=== PATIENT | male | born 1970 | race Hispanic/Latino ===

== ENCOUNTER 2025-01-09 10:23 | Emergency (ER) | payer OTHER ==
[~2025-01-09] VITALS: Ht 167.6 cm; Wt 102.1 kg
[2025-01-09 10:46] LABS: APPEARANCE,URINE CLEAR (CLEAR); BILIRUBIN,URINE NEGATIVE (NEGATIVE); COLOR,URINE STRAW (YELLOW); GLUCOSE, URINE (UA) NEGATIVE (NEGATIVE); KETONES,URINE NEGATIVE (NEGATIVE); LEUKOCYTE ESTERASE ,URINE NEGATIVE Leu/uL (NEGATIVE); NITRATE,URINE NEGATIVE (NEGATIVE); OCCULT BLOOD,URINE NEGATIVE (NEGATIVE); PROTEIN,URINE NEGATIVE (NEGATIVE); UROBILINOGEN,URINE 0.2 mg/dL (0.2-1.0)
[2025-01-09 10:47] LABS: ADD UA MICROSCOPIC NO
[2025-01-09 10:57] VITALS: TEMP 98.7
[2025-01-09 10:59] LABS: BASOPHILS # (AUTO) 0.03 K/uL (0.00-0.20); BASOPHILS % (AUTO) 0.4 % (0.0-5.0); EOSINOPHILS # (AUTO) 0.21 K/uL (0.00-0.70); EOSINOPHILS % (AUTO) 2.8 % (0.0-8.0); HEMATOCRIT 45.6 % (42-54); IMMATURE GRANULOCYTE ABSOLUTE 0.01 K/uL (0-1); LYMPHOCYTES # (AUTO) 2.7 K/uL (1.0-4.8); LYMPHOCYTES % (AUTO) 36.1 % (21.0-51.0); MEAN CORPUSCULAR HEMOGLOBIN 30.4 pg (27.0-33.0); MEAN CORPUSCULAR VOLUME 89.4 fL (79-99); MONOCYTES # (AUTO) 0.6 K/uL (0.1-1.0); MONOCYTES % (AUTO) 7.7 % (3.0-13.0); NEUTROPHILS # (AUTO) 3.9 K/uL (1.8-7.7); NEUTROPHILS % (AUTO) 52.9 % (40.0-77.0); PLATELET COUNT (AUTO) 211 K/uL (130-400); RED CELL DISTRIBUTION WIDTH 12.2 % (11.0-15.5); WHITE BLOOD COUNT (AUTO) 7.4 K/uL (4.8-10.8)
[2025-01-09] MEDS: ASPIRIN 325MG EC TAB PO ONE (10:59)
[2025-01-09] MEDS: NITROGLYCERIN 1GM OINT 1 INCH/1GM TD ONE (11:00)
[2025-01-09 11:10] LABS: CREATININE 1.1 mg/dL (0.5-1.3); POTASSIUM 4.2 mmol/L (3.5-5.1)
[2025-01-09 11:27] LABS: B-TYPE NATRIURETIC PEPTIDE 16 pg/mL (0-100)
--- NOTE | 2025-01-09 11:36 | HMCIMG ---
Exam Type: CHEST 1VW Clinical Information: CHEST PAIN Comparison: None Findings: The lungs are clear of infiltrates. The heart is normal in size. The bony and soft tissue structures of the chest are unremarkable. Impression: Clear lungs.
--- NOTE | 2025-01-09 12:10 | ERN ---
ED Note History of Present Illness Stated Complaint: CHEST PAIN AND NUMBNESS TO LEFT CHEST Chief Complaint: Chest Pain Time Seen by MD: 10:25 Dictation: 54-year-old male with a history of HTN presents to the ED for evaluation of intermittent chest pain onset two days ago. Patient is also complaining of left chest numbness sensation and chronic numbness to right thigh, but denies any shortness a breath or any other associated symptoms at this time. Patient has not been seen by access service representative. Allergies: Coded Allergies: No Known Drug Allergies (Unverified Allergy, Unknown, 01/09/25) Past Medical History Past Medical History: Anxiety, Hypertension Additional Past Medical Hx: ANXIETY ATTACKS Surgical History: Other Review of System Dictation Constitutional: Negative for fever,chills, and weight loss Eyes: Negative for injury, pain,redness, and discharge ENT: Negative for injury,pain or swelling Cardiovascular: Positive for chest pain, numbness sensation to chest Respiratory: Negative for shortness of breath, cough, and wheezing, Abdomen/GI: Negative for abdominal pain, nausea, vomiting, diarrhea, and constipation Back: Negative for injury and pain : Negative for injury, bleeding and discharge MS/Extremity: Negative for injury and deformity Skin: Negative for rash, and discoloration Neuro: Negative for headache, weakness, numbness, tingling, and seizure Psych: Negative for suicide ideation, homicidal ideation, and hallucinations Initial Vital Sign VS Vital Signs Date Time Temp Pulse Resp B/P (MAP) Pulse Ox O2 Delivery O2 Flow Rate FiO2 01/09/25 10:25 97.3 68 14 182/102 99 Room Air 0 01/09/25 10:57 21 Physical Exam Dictation General: awake, alert, NAD Head/Face: Normocephalic, atraumatic Eyes: PERRL, EOMI, vision at baseline ENT: oral cavity clear, TMs clear, no signs of infection Neck: Trachea midline, supple, no nuchal rigidity Cardiovascular: RRR, normal S1/S2, No MRGs, no JVD Respiratory: CTAB, no respiratory distress, No rales or wheezes Abdomen: Soft, non-tender, non-distended, normal bowel sounds, no guarding or rebound. Skin: Warm, dry, normal turgor, no rash MS/Extremity: Pulses equal, no cyanosis, neurovascular intact, FROM Neuro: COAx4, GCS 15, strength 5/5, CN 2-12 intact, normal cerebellar exam, normal gait, Psych: Normal behavior, mood, and affect normal Results (Laboratory/Radiology) Laboratory/Radiology Laboratory Tests Test 01/09/25 10:36 01/09/25 10:49 01/09/25 12:43 Urine Color STRAW (YELLOW) Urine Appearance CLEAR (CLEAR) Urine pH 7.0 (5.0-8.0) Urine Specific Drift 1.003 (1.001-1.031) Urine Protein NEGATIVE mg/dL (NEGATIVE) Urine Glucose (UA) NEGATIVE mg/dL (NEGATIVE) Urine Ketones NEGATIVE mg/dL (NEGATIVE) Urine Occult Blood NEGATIVE (NEGATIVE) Urine Nitrate NEGATIVE (NEGATIVE) Urine Bilirubin NEGATIVE mg/dL (NEGATIVE) Urine Urobilinogen 0.2 mg/dL (0.2-1.0) Urine Leukocyte Esterase NEGATIVE July/uL White Blood Count 7.4 K/uL (4.8-10.8) Red Blood Count 5.10 MIL/uL (4.50-6.20) Hemoglobin 15.5 g/dL (14.0-18.0) Hematocrit 45.6 % (42-54) Mean Corpuscular Volume 89.4 fL (79-99) Mean Corpuscular Hemoglobin 30.4 pg (27.0-33.0) Mean Corpuscular Hemoglobin Concent 34.0 g/dL (32.0-36.0) Red Cell Distribution Width 12.2 % (11.0-15.5) Platelet Count 211 K/uL (130-400) Mean Platelet Volume 10.6 fL (7.5-10.5) H Immature Granulocyte % (Auto) 0.1 % (0-1) Neutrophils (%) (Auto) 52.9 % (40.0-77.0) Lymphocytes (%) (Auto) 36.1 % (21.0-51.0) Monocytes (%) (Auto) 7.7 % (3.0-13.0) Eosinophils (%) (Auto) 2.8 % (0.0-8.0) Basophils (%) (Auto) 0.4 % (0.0-5.0) Neutrophils # (Auto) 3.9 K/uL (1.8-7.7) Lymphocytes # (Auto) 2.7 K/uL (1.0-4.8) Monocytes # (Auto) 0.6 K/uL (0.1-1.0) Eosinophils # (Auto) 0.21 K/uL (0.00-0.70) Basophils # (Auto) 0.03 K/uL (0.00-0.20) Absolute Immature Granulocyte (auto 0.01 K/uL (0-1) Nucleated Red Blood Cells 0.0 % (0.0-0.19) Sodium Level 139 mmol/L (136-145) Potassium Level 4.2 mmol/L (3.5-5.1) Chloride Level 102 mmol/L (101-111) Carbon Dioxide Level 32 mmol/L (21-32) Blood Urea Nitrogen 13 mg/dL (7-18) Creatinine 1.1 mg/dL (0.5-1.3) Glomerular Filtration Rate Calc 81 mL/min (>90) Random Glucose 105 mg/dL (70-105) Total Calcium 9.0 mg/dL (8.5-10.1) Total Creatine Kinase 95 U/L (21-232) Troponin I High Sensitivity 4 ng/L (4-75) 7 ng/L (4-75) B-Type Natriuretic Peptide 16 pg/mL (0-100) Labs Reviewed?: Yes EKG Comment: EKG 01/09/2025 time 10:22 a.m. ventricular rate 64, DE 155, QRS D 107, QT 376. Sinus rhythm, left anterior fascicular block. No STEMI ED Course ED Course Orders Procedure Category Date Status Time Vital Signs Per CPOE 01/09/25 Transmitted Routine 10:24 B-Type Natriuretic LAB 01/09/25 Complete Peptide 10:24 Chest 1vw RAD 01/09/25 Resulted 10:24 12 Lead Ekg Tracing- EKG 01/09/25 Logged Technical 10:24 Oxygen By Nc/Pulse Ox CPOE 01/09/25 Transmitted 10:24 Maintain Iv CPOE 01/09/25 Transmitted 10:24 Iv Insertion CPOE 01/09/25 Transmitted 10:24 Cardiac Monitoring CPOE 01/09/25 Transmitted 10:24 Pulse Oximetry With CPOE 01/09/25 Transmitted Vs And Prn 10:24 Cbc With Differential LAB 01/09/25 Complete 10:24 Activity: Br W/Brp CPOE 01/09/25 Transmitted With Assist 10:24 Creatine Kinase, Total LAB 01/09/25 Complete 10:24 Troponin I High LAB 01/09/25 Complete Sensitivity 10:24 Urinalysis Profile LAB 01/09/25 Complete 10:24 Basic Metabolic Panel LAB 01/09/25 Complete 10:24 Aspirin 325mg Ec Tab PHA 01/09/25 Complete (Aspirin 325mg Ec T 11:00 Nitroglycerin 1gm PHA 01/09/25 Complete Oint (Nitroglycerin 1g 11:00 Troponin I High LAB 01/09/25 Complete Sensitivity 12:32 Current Medications Medications (Trade) Dose Ordered Sig/Olga Route PRN Reason Start Time Stop Time Status Last Admin Dose Admin Aspirin (Aspirin 325mg Ec Tab) 325 mg ONCE ONCE PO 01/09/25 11:00 01/09/25 11:01 DC 01/09/25 10:59 Nitroglycerin (Nitroglycerin 1gm Oint) 0.5 inch ONCE ONCE TD 01/09/25 11:00 01/09/25 11:01 DC 01/09/25 11:00 Vital Signs Date Time Temp Pulse Resp B/P (MAP) Pulse Ox O2 Delivery O2 Flow Rate FiO2 01/09/25 10:57 98.8 63 16 183/97 97 Room Air* 0 21 01/09/25 10:25 97.3 68 14 182/102 99 Room Air 0 HEART Score Response (Comments) Value History: Low suspicion (0) 0 EKG: Normal 0 Age: 45-65yrs (+1) 1 Risk Factors: 1-2 risk factors (+1) 1 Initial Troponin: Normal limit (0) 0 HEART Score Risk: Low Risk for MACE (1-3) Total 2 Medical Decision Making MDM MDM: Differential diagnosis: Chest pain Risk of complication and/or morbidity or mortality of patient management: None Medications-Per medication reconciliation Need for hospitalization: Patient does not meet criteria for hospitalization. Need for emergency major/minor surgery: No There are no social concerns with this patient. Prescription drug management Prescriptions will include symptomatic care I independently interpreted the test that were performed, results were reviewed by me and considered findings on radiology if ordered. DX & DISP Disposition: Discharge Departure Impression: Primary Impression: Chest pain Condition: Stable Referrals: SELF,REFERRAL (PCP) KARYN PIERRE MD Time of Disposition: 14:09 JASBIR BOYLE MD January 09, 2025 12:10
[2025-01-09 14:58] VITALS: BP 129/80; PULSE 90; RESP 16; O2SAT 97
--- NOTE | 2025-01-09 15:34 | EKG ---
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
== END 2025-01-09 15:00 | disposition home or self-care (01) ==
LOC: EDH 10:23
DX: R07.89 Other chest pain (principal); I10 Essential (primary) hypertension; F41.9 Anxiety disorder, unspecified
CPT/HCPCS: 36415; 71045; 80048; 81003; 82550; 83880; 84484; 85025; 93005; 99285